=== PATIENT | female | born 1995 | race Caucasian/White ===

== ENCOUNTER → 2020-03-15 11:25 | Outpatient (CLI) | payer BC, SELFPAY ==
--- NOTE | ~2020-03-15 | US_ITS ---
EXAMINATION: US thyroid DATE: 03/15/2020 11:40 INDICATION: Thyroid nodule. TECHNIQUE: Multiple ultrasound images of the thyroid were obtained. COMPARISON: None. FINDINGS: The right thyroid lobe measures 4.8 x 1.7 x 1.4 cm. The left thyroid lobe measures 4.1 x 1.4 x 1.5 c m. There is normal echotexture and echogenicity throughout the thyroid gland. No discrete nodules id entified. Normal vascular flow is present. IMPRESSION: 1. Normal thyroid. Reviewed, dictated and finalized at location B. OR CLINICAL RESEARCH SCIENTIST IMPRESSION: 1. Normal thyroid.
== END ==
DX: E04.1 Nontoxic single thyroid nodule (principal)
CPT/HCPCS: 76536

== ENCOUNTER 2020-04-25 09:33 | Emergency (ER) | payer BC, SELFPAY ==
--- NOTE | ~2020-04-25 | XR_ITS ---
XR shoulder LT min 2V 04/25/2020 10:02 INDICATION: Left shoulder pain PROCEDURE: 4 views left shoulder COMPARISON: No prior studies for comparison. FINDINGS: Fracture, dislocation or subluxation is not identified. The soft tissues appear within norm al limits. No foreign bodies are identified. IMPRESSION: 1: NO ACUTE BONE OR JOINT ABNORMALITY IDENTIFIED. Reviewed, dictated and finalized at location A. ODICALS LIBRARY ASSISTANT
[2020-04-25 09:41] VITALS: BP 149/89; PULSE 85; RESP 20; TEMP 36.4; O2SAT 100
--- NOTE | 2020-04-25 10:32 | ED.UPPEXIN ---
HPI - Extremity Injury (Upper) General Chief Complaint: Extremity Injury, Upper Stated Complaint: arm pain/dizzy Time Seen by Provider: 04/25/20 10:10 Source: patient Mode of arrival: ambulatory Limitations: no limitations History of Present Illness HPI narrative: This is a 24-year-old female that presents the emergency department for left posterior shoulder pain since yesterday. No known injury or trauma. Reports the pain shoots down her back and into her arm. Pain is worse with movement and relieved with rest. Patient has been taking anti-inflammatories with some improvement. Denies fever, weakness, or numbness. Related Data Home Medications Medication Instructions Recorded Confirmed norgestimate-ethinyl estradiol tablet 04/25/20 [Estarylla] Allergies Allergy/AdvReac Type Severity Reaction Status Date / Time No Known Allergies Allergy Verified 04/25/20 09:44 Review of Systems Review of Systems: Narrative: CONSTITUTIONAL: Denies fever SKIN: Denies rash MUSCULOSKELETAL: Reports back pain, joint pain, and myalgia. NEUROLOGIC: Denies numbness, or weakness. All systems reviewed & are unremarkable except as noted in HPI and below PMFSH Past Medical History Medical History (Updated 04/25/20 @ 11:42 by Norma Hauser PA-C) No active medical problems Social History Social History (Updated 04/25/20 @ 10:33 by Norma Hauser PA-C) Substance use: never Exam Narrative: Exam Narrative: GENERAL: Well-appearing, well-nourished, and in no acute distress. HEAD: Normocephalic, atraumatic. EYES: EOMI. CHEST: Airway patent BACK: No midline spinal tenderness. Tender to palpation of left trapezius musculature EXTREMITIES: Normal range of motion. No edema, erythema or obvious deformity. Strength equal in bilateral upper extremities. Normal radial pulses. Normal sensation SKIN: Warm, dry, no rash. NEURO: No focal deficits. Alert and oriented x3. PSYCH: Normal mood and affect Course Vital Signs Vital signs: Vital Signs Temperature 97.5 F L 04/25/20 09:41 Pulse Rate 85 04/25/20 09:41 Respiratory Rate 20 04/25/20 09:41 Blood Pressure 149/89 H 04/25/20 09:41 Pulse Oximetry 100 04/25/20 09:41 Temperature 97.5 F L 04/25/20 09:41 Pulse Rate 85 04/25/20 09:41 Respiratory Rate 20 04/25/20 09:41 Blood Pressure 149/89 H 04/25/20 09:41 Pulse Oximetry 100 04/25/20 09:41 MDM - Extremity Injury (Upper) MDM Narrative Medical decision making narrative: Patient presents the emergency department for left posterior shoulder pain since yesterday. No known injury or trauma. She is neurologically intact. Left shoulder x-rays without acute findings. Patient having muscle spasm in the area. Reports improvement with Tylenol and Valium. She is stable and felt appropriate for further outpatient evaluation. She is to follow-up with primary care doctor. She was given warnings to return to the ER Imaging Data Radiologist's impression: ITS Impressions Shoulder X-Ray 04/25/20 10:07 IMPRESSION: 1: NO ACUTE BONE OR JOINT ABNORMALITY IDENTIFIED. Critical Care Time Critical Care Time Critical Care Time: No Discharge Plan Discharge Clinical Impression: Acute pain of left shoulder Patient Disposition: Home, Self-Care Condition: Stable Instructions: Muscle Spasm (ED) Additional Instructions: Return to the ER if you experience fever, weakness, numbness, or any other symptoms that are concerning to you Rest, use ice/heat, take anti-inflammatories (Aleve, Ibuprofen, Naproxen, etc) or Tylenol as needed for pain as well as muscle relaxer (diazepam) as needed for pain. Muscle relaxers can make you drowsy, do not drive if you take this Follow up with primary care doctor Prescriptions: New diazepam 5 mg tablet 5 mg PO BID PRN (Reason: muscle spasm) Qty: 10 RF: 0 No Action norgestimate-ethinyl estradiol [Estarylla] 0.25-35 mg-mcg tablet R
[2020-04-25] MEDS: ACETAMINOPHEN 500 MG TABLET 1000 MG PO (10:43)
[2020-04-25] MEDS: diazePAM INJ (*CRX) 10 MG/2 ML SYRINGE 5 MG IM (10:43)
== END 2020-04-25 11:59 | disposition home or self-care (01) ==
PROVIDERS: Emergency Provider Emergency Medicine
DX: M25.512 Pain in left shoulder (principal)
CPT/HCPCS: 73030; 96372; 99283; A9270; J3360

== ENCOUNTER 2021-11-16 08:17 | Outpatient (CLI) | payer BC, SELFPAY | END 2021-11-16 08:18 | disposition home or self-care (01) | PROVIDERS: Visit Provider Obstetrics & Gynecology | DX: Z01.818 Encounter for other preprocedural examination (principal); N83.201 Unspecified ovarian cyst, right side | CPT/HCPCS: 36415; 86850; 86900; 86901 ==

== ENCOUNTER 2021-11-18 01:26 | Day surgery (SDC) | payer BC, SELFPAY ==
[2021-11-15 09:55] VITALS: BMI 32.2
--- NOTE | 2021-11-15 09:56 | PC.NURSE ---
Report to the Outpatient Waiting Room, entrance under the green pavilion located off [facility], at time __0715 on date 11/18/21_. OR Time: ___914___. - You and your visitor will be asked a series of questions to screen for COVID 19 for your protection. - Only one visitor is allowed at this time. - The patient visitor is requested to leave or wait in car when not with patient. - A mask is required within the hospital. Patients may have clear liquids (water, carbonated beverages, clear teas, apple juice) until 3 hours prior to surgery with a maximum of 20 ounces. - No food from midnight until time of surgery - Infants may have breast milk until 4 hours before surgery, formula 6 hours prior to surgery. - Children will be allowed to drink immediately following surgery. If applicable, please bring a bottle or sippy cup to assist with drinking. Juice, water, soda, and popsicles are readily available. For infants on formula, please bring formula the day of surgery. Pacifiers are allowed. Take the following medications with a SIP of water the morning of surgery: ___NONE Medications to discontinue per physician NONE Date to take last dose Please no make-up, nail trinidadian, hairspray, perfume, deodorant, or body powder the day of surgery. No jewelry (including any body piercings) or valuables the day of surgery, leave them at home. Please take a shower or bath the night before, or the morning of, surgery with an antibacterial soap. Wear comfortable, loose fitting clothing. Children are encouraged to wear pajamas. - Jewelry must be removed prior to entering the operating room. Rings and piercings that are not removed may be cut off. - The hospital will not accept responsibility for valuables. - Please leave all valuables, including medications, at home the day of surgery. If you are going home after surgery, a licensed canal driver must drive you home. - NO public transportation without another adult. - We recommend that an adult stay with you for 24 hours following discharge. - We also recommend that you do not drive, make important decision, drink alcoholic beverages, or take any drugs that were not prescribed by your health care provider for at least 24 hours after your discharge time. For Pediatric surgeries, we recommend two adults accompany the child home (only one inside the building at this time). Follow any additional instructions given to you from your surgeon. If you or anyone in your household have experienced Covid symptoms in the past week, please notify your surgeon or the nurse liaison at the phone number below for possible testing. Telephone instructions given to _PATIENT_and asked if any additional questions and then verbalized understanding. Patient advised to call surgeon office or pre surgery nurse liaison [phone] if any additional questions.
--- NOTE | 2021-11-16 07:02 | PM.IMHP ---
H&P: HPI History of Present Illness Date/Time: 11/16/21 07:02 Chief Complaint: pelvic pain and ovarian cyst Narrative: a 26-year-old female with a large right ovarian cyst. This was seen on imaging. She will undergo laparoscopic right cystectomy with possible right oophorectomy or salpingo-oophorectomy. Risks and benefits reviewed including but not exclusive of , aspiration pneumonia bleeding, bleeding, transfusion, perforation injury to bowel, bladder, ureters, or other internal organs with need for open laparotomy. She received the ACOG handout entitled laparoscopy. She had all questions answered. She asked to proceed PMFSH Past Medical History Medical History Cholinergic urticaria Elevated liver enzymes Fatigue Dulce's disease No active medical problems Obesity (BMI 30.0-34.9) Positive CONCHIS (antinuclear antibody) Social History Social History Smoking status: Never smoker Second hand tobacco smoke exposure: No Alcohol intake: current Alcohol use details: 2 PER MONTH Substance use: never Substance use type: does not use Gender identity (if verbalized by the patient): Female Meds Home Medications and Allergies Home Medications Medication Instructions Recorded Confirmed Type norgestimate 0.25 mg-ethinyl 1 tablet PO DAILY 04/25/20 11/15/21 History estradiol 35 mcg tablet (Estarylla) Allergies Allergy/AdvReac Type Severity Reaction Status Date / Time No Known Allergies Allergy Verified 11/15/21 09:48 Exam Const: General: cooperative and healthy appearing Nutritional Appearance: average body habitus Orientation/consciousness: oriented to person, oriented to place and oriented to time Resp: Effort & Inspection: normal respiratory effort Cardio: Rate: regular rate Rhythm: regular rhythm GI: Inspection: normal to inspection GI Palp: Yes abdominal tenderness ( right lower quadrant) : External Female Exam: normal external appearance Speculum Exam - Vagina: normal appearance of the vagina Speculum Exam - Cervix: normal appearance of the cervix Bimanual exam- vagina & uterus: uterine shape normal Bimanual Exam- Adnexa, other: tender on the right and Adnexal mass present on the right Assessment and Plan Assessment and plan (1) Right ovarian cyst: Code(s): N83.201 - Unspecified ovarian cyst, right side Status: Acute Plan laparoscopy with right cystectomy and possible right oophorectomy versus salpingo-oophorectomy
[2021-11-18] VITALS (10 sets, daily range): BP systolic 96–127; BP diastolic 46–99; PULSE 68–94; RESP 13–20; TEMP 36.2–36.4; O2SAT 98–100
--- NOTE | 2021-11-18 06:29 | WPDHPUPDATE1 ---
History and Physical Update Update Date/Time: 11/18/21 06:29 History and Physical has been reviewed, including an updated exam of the patient. There are NO changes in the patient's condition. Risks, benefits, and alternatives have been discussed and questions answered. Patient agrees to proceed with procedure.
[2021-11-18] MEDS: ACETAMINOPHEN 500 MG TABLET 1000 MG PO (07:48)
[2021-11-18] MEDS: KETOROLAC 15 MG/ML VIAL (*BKC) IV PUSH (07:50)
--- NOTE | 2021-11-18 08:26 | P.PNAN_ITS ---
Anes - Initial Pre Proc Eval Procedure: Operation Date: 11/18/21 09:15 Proposed Procedures p Laparoscopic Right Ovarian Cystectomy, Possible Right Salpingo-Oophorectomy - Favian Montano MD Date/Time: 11/18/21 08:26 Surgeon: Favian Montano MD Pre Op Diagnosis: large right ovarian cyst Patient Data Age: 26 Gender: F Height: 1.57 m Weight: 81.4 kg Last Vital Signs Temp 36.4 C L 11/18/21 08:02 Pulse 80 11/18/21 08:02 Resp 16 11/18/21 08:02 BP 114/99 H 11/18/21 08:02 Pulse Ox 99 11/18/21 08:02 O2 Del Method Room Air 11/18/21 08:02 Allergies Allergy/AdvReac Type Severity Reaction Status Date / Time No Known Allergies Allergy Verified 11/18/21 07:20 Home Medications Medication Instructions Recorded Confirmed Type norgestimate 0.25 mg-ethinyl 1 tablet PO DAILY 04/25/20 11/18/21 History estradiol 35 mcg tablet (Estarylla) hydrocodone 5 mg-acetaminophen 325 1 tablet PO Q4H PRN pain #20 tabs 11/18/21 Rx mg tablet Patient hx anesthesia problems: none Family hx anesthesia problems: none Results Review: All pre-operative results and documents have been reviewed as part of the pre- operative evaluation. [facility] Past Medical History Medical History Cholinergic urticaria Elevated liver enzymes Fatigue Dulce's disease No active medical problems Obesity (BMI 30.0-34.9) Positive CONCHIS (antinuclear antibody) Social History Social History Smoking status: Never smoker Second hand tobacco smoke exposure: No Alcohol intake: current Alcohol use details: Rarely Substance use: never Substance use type: does not use Living arrangements: with family Gender identity (if verbalized by the patient): Female Anes - Eval Final PreProcedure Day of Procedure 11/18/21 08:26 Patient weight: obese Heart: regular rate and rhythm Lungs: clear to auscultation Airway: Mallampati scale class III Neurological: alert and oriented Last oral intake: >/= 8 hours ASA classification: II Emergent: no Anesthetic plan: proceed Anesthesia type and monitoring: general ETT and standard monitoring Results Review: All pre-operative results and documents have been reviewed as part of the pre- operative evaluation. Informed Consent: The patient's anesthetic plan and its attendant risks and benefits were discussed with the patient/family/POA. Questions were solicited and answers provided to the satisfaction of the patient/family/POA.
[2021-11-18] MEDS: LACTATED RINGERS 1,000 ML 30 ML IV CONT ×2 (08:45→10:09)
[2021-11-18] MEDS: SCOPOLAMINE 1.5 MG PATCH TRANSDERM (08:45)
[2021-11-18] MEDS: LIDOCAINE HCL 1% LOCAL INJ 10 ML VIAL 20 ML INFILTRATE (09:54)
--- NOTE | 2021-11-18 09:56 | P.OP_ITS ---
Procedure Note - Detailed Date of Procedure 11/18/21 Pre-op Diagnosis large right ovarian cyst Post-op Diagnosis Other (Large left ovarian cyst) Procedure Performed Laparoscopic left oophorectomy Surgeon Favian Montano MD Anesthesia General Indications This is the 26-year-old female with a large ovarian cyst which was suspected to be from the right was however on the left. Findings A large left ovarian cyst with more than 2L of fluid and side. Normal-appearing ovary on the right normal-appearing tubes bilaterally normal-appearing uterus normal-appearing gallbladder and liver edge Description of Procedure The patient was prepped draped in the normal sterile fashion placed in the dorsal lithotomy position. Under excellent general trach anesthesia weighted speculum placed in posterior fornix vagina. Anterior lip of the cervix grasped with single-tooth tenaculum. The Pedraza's cannula inserted attached to the single-tooth to be used later for uterine manipulation. After emptying the bladder clear urine the weighted speculum was removed the gloves were changed. A supraumbilical incision was made the Veress needle passed in the abdomen. Abdomen filled with CO2 gas [id number]. The 5mm trocar advanced under direct visualization and a large left ovarian cyst was noted. It filled the entire pelvis and with a suprapubic incision made and the 5mm trocar advanced under direct visualization assuring no injury. The ovarian cyst was punctured and using suction device more than 2L of fluid was removed to help with visualization. At that point we could see there was a normal right ovary and t ube the low this left ovarian cyst encompassed the entire ovary so there was virtually no ovary to save. The tube was markedly stretched on that side the but it was felt to could be retained. The gallbladder and liver edge appeared within normal limits. Left lower quadrant incision made and the 10mm trocar advanced under direct visualization assuring no injury. Using the LigaSure the tube was sharply dissected away from the ovarian complex. The infundibulopelvic structure of this ovarian mass was then serially clamped burned and cut with the LigaSure this was then placed in an Endo-Catch and removed through the left lower quadrant. Hemostasis was assured irrigation was undertaken to clear. No other abnormalities were seen. The lower site removed. The gas removed from the abdomen. The incisions closed with 4 Monocryl and glue. The patient was awakened and went to recovery in satisfactory condition. All sponge, needle, instrument counts were correct. There were no immediate complications Estimated Blood Loss 5 Drains No Packing No Pathology Yes Complications No immediate complications Condition Stable Disposition PACU
[2021-11-18] MEDS: oxyCODONE HCL (*CRX) 5 MG TAB IR PO (12:02)
== END 2021-11-18 12:40 | disposition home or self-care (01) ==
PROVIDERS: Visit Provider Obstetrics & Gynecology
PROC: (CPT 49320; principal; 2021-11-18 09:15)
DX: D27.1 Benign neoplasm of left ovary (principal); E66.9 Obesity, unspecified; Z68.32 Body mass index [BMI] 32.0-32.9, adult
CPT/HCPCS: 58661; 88305; A9270; J0330; J1100; J1170; J1885; J2250; J2405; J2704; J7120

== ENCOUNTER 2022-11-23 10:01 | Emergency (ER) | payer BC, SELFPAY ==
[2022-11-23 10:04] VITALS: BP 145/85; PULSE 90; RESP 16; TEMP 36.8; O2SAT 100
--- NOTE | 2022-11-23 11:33 | ED.FALL ---
HPI - Fall General Chief Complaint: Fall Stated Complaint: FALL +PREG KIMMIE LEACH REQUESTS NEURO EVAL Time Seen by Provider: 11/23/22 11:15 Source: patient Mode of arrival: ambulatory Limitations: no limitations History of Present Illness HPI Narrative: This is a 27 year old , about 15 weeks that presents to the ER after a fall. Reports she was lying in a hammock yesterday and the hammock broke and she fell onto her back. She is unsure if she hit her head. She did not lose consciousness. Reports since she has had some lightheadedness and headache. Also reports some nausea. Reports low back pain after the fall. She was maybe about 1.5-2ft high in the hammock. Denies visual changes, vomiting, numbness or weakness. Related Data Home Medications Medication Instructions Recorded Confirmed norgestimate 0.25 mg-ethinyl 1 tablet PO DAILY 04/25/20 11/18/21 estradiol 35 mcg tablet (Estarylla) Allergies Allergy/AdvReac Type Severity Reaction Status Date / Time No Known Allergies Allergy Verified 11/18/21 07:20 Review of Systems Review of Systems: CONSTITUTIONAL: Denies fever EYES: Denies visual changes GASTROINTESTINAL: Reports nausea. Denies vomiting MUSCULOSKELETAL: Reports back pain, and myalgia. NEUROLOGIC: Denies numbness, or weakness. All systems reviewed & are unremarkable except as noted in HPI and below PMFSH Past Medical History Medical History Cholinergic urticaria Elevated liver enzymes Fatigue Dulce's disease No active medical problems Obesity (BMI 30.0-34.9) Positive CONCHIS (antinuclear antibody) Social History Social History (Updated 11/23/22 @ 11:36 by Norma Hauser PA-C) Smoking status: Never smoker Second hand tobacco smoke exposure: No Substance use: never Substance use type: does not use Living arrangements: with family Occupation/Education: occupation Gender identity (if verbalized by the patient): Female Exam Narrative: GENERAL: Well-appearing, well-nourished, and in no acute distress. HEAD: Normocephalic, atraumatic. EYES: PERRLA and EOMI. ENT: Nares clear, no rhinorrhea or epistaxis. Mucous membranes moist. Oropharynx without tonsillar hypertrophy exudate or other lesions. Bilateral TMs pearly cordova non-bulging NECK: Supple. No adenopathy or masses. No midline spinal tenderness CHEST: Clear to auscultation. No respiratory distress. No wheezes rales or rhonchi HEART: Regular rate and rhythm. No murmur heard. Normal peripheral pulses. BACK: No midline thoracic spine tenderness. Mild tenderness to palpation of midline lower lumbar spine and sacrum. No bruising or signs of trauma EXTREMITIES: Normal range of motion. No edema or obvious deformity. Strength equal in bilateral upper and lower extremities (5/5) SKIN: Warm, dry, no rash. NEURO: No focal deficits. Alert and oriented x3. Cranial nerves II through XII grossly intact. Normal gait PSYCH: Normal mood and affect Course Course Emergency Course: Had lengthy discussion with patient and family member. Agree on holding off on imaging at this time. Will return with any worsening symptoms. Instructed on activity modification and Tylenol as needed for pain Consultations Consultation #1: Spoke with Dr. Kimmie Leach about patient. Agrees with holding off on imaging at this time as patient has a normal neurologic exam. I do not have high suspicion for intracranial abnormality or lumbar spine fracture Date: 11/23/22 Vital Signs Vital signs: Vital Signs Temperature 98.2 F 11/23/22 10:04 Pulse Rate 90 11/23/22 10:04 Respiratory Rate 16 11/23/22 10:04 Blood Pressure 145/85 H 11/23/22 10:04 Pulse Oximetry 100 11/23/22 10:04 Oxygen Delivery Room Air 11/23/22 10:04 Temperature 98.2 F 11/23/22 10:04 Pulse Rate 90 11/23/22 10:04 Respiratory Rate 16 11/23/22 10:04 Blood Pressure 145/85 H 11/23/22 10:04 Pulse Oximetr
[2022-11-23 12:41] VITALS: BP 135/79; PULSE 73; O2SAT 99
== END 2022-11-23 12:41 | disposition home or self-care (01) ==
PROVIDERS: Emergency Provider Physician Assistant; PCP Obstetrics & Gynecology
DX: O26.892 Other specified pregnancy related conditions, second trimester (principal); W19.XXXA Unspecified fall, initial encounter
CPT/HCPCS: 99283

== ENCOUNTER 2024-11-19 13:44 | Outpatient (CLI) | payer OTHER, SELFPAY ==
--- OUTSIDE RECORDS SUMMARY | 2024-11-19 13:53 | XMS_ITS | Clinical Summary ---
Author Organization [facility] Address [address] [place] [id number] Care Team Providers Care Cost Engineer Name Role Phone MAUREEN العلي Angela Primary Care Provider Allergies Active Allergy Reactions Criticality Noted Date Comments Gluten Meal Swelling 06/13/2018 Medications No known medications Active Problems No known active problems Family History Medical History Relation Comments Diabetes Maternal Grandfather Cancer Maternal Grandmother Diabetes Maternal Grandmother Diabetes Paternal Grandfather Cancer Paternal Grandmother Relation Status Comments Maternal Grandfather Maternal Grandmother Paternal Grandfather Paternal Grandmother Social History Tobacco Use Types Packs/Day Years Used Date Smoking Tobacco: Never Smokeless Tobacco: Never Alcohol Use Standard Drinks/Week Comments No 0 (1 standard drink = 0.6 oz pur e alcohol) AUDIT-C Answer Date Recorded Frequency of Alcohol Consumption Never 06/13/2018 Average Number of Drinks Not on file 019 Frequency of Binge Drinking Not on file 10/2018 Comments Unknown Sex and Gender Information Value Date Recorded Sex Assigned at Not on file Legal Sex Female 8:06 AM CDT Gender Identity Not on file Sexual Orientation Not on file Last Filed Vital Signs Vital Sign Reading Time Taken Comments Blood Pressure 118/72 06/13/2018 10:37 AM MASH TUB COOKER Pulse 74 06/13/2018 10:37 AM MASH TUB COOKER Temperature 37 C (98.6 F) 06/13/2018 10:37 AM MASH TUB COOKER Respiratory Rate 18 06/13/2018 10:37 AM MASH TUB COOKER Oxygen Saturation - - Inhaled Oxygen Concentration - - Weight 68.5 kg (151 lb) 06/13/2018 10:37 AM MASH TUB COOKER Height 157.5 cm (5' 2) 06/13/2018 10:37 AM MASH TUB COOKER Body Mass Index 27.62 06/13/2018 10:37 AM MASH TUB COOKER Plan of Treatment Health Maintenance Due Date Last Done Comments Cervical Cancer Screening Pa p Smear (Age 21 to 29) Every 3 Years 1997 Cervical Cancer Screening 1997 Annual Physical 2000 Hepatitis C 11/02/2015 Hepatitis B Vaccines (1 of 3 - 19+ 3-dose series) 2016 DTaP, Tdap and Td Vaccines ( 2 - Td or Tdap) 07/19/2021 07/20/2011 COVID-19 Vaccine (1 - 2023-2 5 season) 2023 HPV Vaccines (1 - 3-dose SCD M series) 2024 Meningococcal Vaccine Aged Out 01/11/2015 , 01/07/2015 No longer eligible based on patient's age to complete this topic Meningococcal B Vaccine Aged Out No l onger eligible based on patient's age to complete this topic Pneumococcal Vaccine: Pediatrics (0 to 5 Years) and At-Risk Patients (6 to 49 Years) Aged Out No longer eligible b ased on patient's age to complete this topic RSV Immunizations Under 20 Months Aged Out No longer eligible b ased on patient's age to complete this topic Insurance [facility] Care Teams Cost Engineer Relationship Specialty Start Date End Date Zenaida Steward V, PHOTOVOLTAIC SOLAR CELL DESIGNER-BC [address] [place] [address] [place] [address] PCP - General Nurse Practitioner Family 06/11/18
--- NOTE | 2024-11-19 14:05 | ECG_ITS ---
Test Date: 2024-11-19 14:19:36 Measurements Intervals [place] Rate: 50 P: 18 MS: 164 QRS: 51 QRSD: 77 T: 34 QT: 432 QTc: 394 Interpretive Statements SINUS BRADYCARDIA BORDERLINE ECG No previous ECG available for comparison Electronically Signed On 11-19-2024 14:35:35 CDT by Yasir Bauer D.O.
== END 2024-11-19 13:45 | disposition home or self-care (01) ==
PROVIDERS: PCP Obstetrics & Gynecology; Visit Provider Obstetrics & Gynecology
DX: R06.02 Shortness of breath (principal); R94.31 Abnormal electrocardiogram [ECG] [EKG]
CPT/HCPCS: 93005